=== PATIENT | male | born 1965 | race Caucasian/White ===

== ENCOUNTER 2021-07-04 07:51 | Day surgery (SDC) | payer OTHER, SELFPAY ==
[~2021-07-04] VITALS: Ht 175.3 cm; Wt 149.7 kg
[2021-07-04] MEDS ORDERED: NS 250 ML IV.SOLN IV ONE (15:00)
[2021-07-04] MEDS ORDERED: NS IRRIG SOLN 1000 ML IR ONE (15:00)
[2021-07-04] MEDS ORDERED: ARTICAINE HCL/EPINEPHRINE 4%/1:200,000 BIT 1.7 ML CARTRIDGE IJ ONE (15:00)
[2021-07-04 15:32] VITALS: BP_SYST 140
== END 2021-07-04 12:40 | disposition home or self-care (01) ==
LOC: SDS 07:51 → SMU 08:39 → SDS 12:40
PROVIDERS: ATTEND Dentist General Practice
DX: M27.2 Inflammatory conditions of jaws (principal); K04.7 Periapical abscess without sinus; I10 Essential (primary) hypertension; E11.9 Type 2 diabetes mellitus without complications; E78.5 Hyperlipidemia, unspecified; Z20.822 Contact with and (suspected) exposure to COVID-19; Z79.899 Other long term (current) drug therapy
CPT/HCPCS: 21025; 21248; 36415; 70140; 82962; 87426; C1713 ×2; J7050

== ENCOUNTER 2021-07-18 07:37 | Day surgery (SDC) | payer OTHER, SELFPAY ==
[~2021-07-18] VITALS: Ht 175.3 cm; Wt 149.7 kg
[2021-07-18] MEDS ORDERED: BENZOCAINE 20% GEL 32 GM BOTTLE MM ONE (11:40)
[2021-07-18] MEDS ORDERED: NS 100 ML BAG ONE (11:40)
[2021-07-18] MEDS ORDERED: ARTICAINE HCL/EPINEPHRINE 4%/1:200,000 BIT 1.7 ML CARTRIDGE IJ ONE (11:40)
[2021-07-18] MEDS ORDERED: NS IRRIG SOLN 1000 ML IR ONE (11:40)
[2021-07-18 12:34] VITALS: BP_SYST 117
== END 2021-07-18 12:12 | disposition home or self-care (01) ==
LOC: SDS 07:37
PROVIDERS: ATTEND Dentist General Practice
DX: M27.2 Inflammatory conditions of jaws (principal); K05.6 Periodontal disease, unspecified; I10 Essential (primary) hypertension; E11.9 Type 2 diabetes mellitus without complications; E78.5 Hyperlipidemia, unspecified; E66.9 Obesity, unspecified; Z90.49 Acquired absence of other specified parts of digestive tract; Z79.899 Other long term (current) drug therapy; Z20.822 Contact with and (suspected) exposure to COVID-19
CPT/HCPCS: 21026; 21215; 21248; 36415; 70140; 82962; 87426; C1713 ×2

== ENCOUNTER 2021-09-12 07:47 | Day surgery (SDC) | payer OTHER ==
[~2021-09-12] VITALS: Ht 175.3 cm; Wt 149.7 kg
[2021-09-12] MEDS ORDERED: BENZOCAINE 20% GEL 32 GM BOTTLE MM ONE (09:00)
[2021-09-12] MEDS ORDERED: ARTICAINE HCL/EPINEPHRINE 4%/1:200,000 BIT 1.7 ML CARTRIDGE IJ ONE (09:00)
[2021-09-12] MEDS ORDERED: NS IRRIG SOLN 1000 ML IR ONE (09:00)
[2021-09-12] MEDS ORDERED: NS 250 ML BAG IV ONE (09:00)
[2021-09-12 14:15] VITALS: BP_SYST 117
== END 2021-09-12 12:20 | disposition home or self-care (01) ==
LOC: SDS 07:47 → SMU 07:55 → SDS 12:20
PROVIDERS: ATTEND Dentist General Practice
DX: M27.2 Inflammatory conditions of jaws (principal); K05.6 Periodontal disease, unspecified; I10 Essential (primary) hypertension; E78.5 Hyperlipidemia, unspecified; E11.9 Type 2 diabetes mellitus without complications; E66.9 Obesity, unspecified; Z90.49 Acquired absence of other specified parts of digestive tract; Z99.3 Dependence on wheelchair; Z79.899 Other long term (current) drug therapy
CPT/HCPCS: 21026; 21210; 36415; 70140; 82962; 87426; C1713; J7050